=== PATIENT | male | born 1950 | race Caucasian/White ===

== ENCOUNTER 2025-05-03 09:07 | Outpatient (CLI) | payer MEDICARE, SELFPAY ==
--- OUTSIDE RECORDS SUMMARY | 2025-05-03 09:48 | XMS_ITS | Encounter Summary ---
Author Organization [facility] Address [address] [facility] [place] [address] Care Team Providers Care Telephone Directory Deliverer Name Role Phone Unavailable Primary Care Provider Unavailabl e Encounter Details Date Type Department Care Team (Late st Contact Info) Description 12/17/2018 Lab Requisition [facility] DermPath Lab [address] [facility] [place] [address] Reese Gonzales MD [address] [place] [address] Social History Tobacco Use Types Packs/Day Years Used Date Smoking Tobacco: Never Assessed Sex and Gender Information Value Date Recorded Sex Assigned at Not on file 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:52 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 Gender Identity Not on file Sexual Orientation Not on file documented as of this encounter Plan of Treatment Not on file documented as of this encounter Procedures Procedure Name Priority Date/Time Associated Diagnosis Comments DERMATOPATHOLOGY Routine 12/16/2018 12:0 0 AM CDT documented in this encounter Results * DERMATOPATHOLOGY (12/16/2018 12:00 AM CDT) Case Report Dermatopathology Report Case: [id number] Authorizing Provider: Reese Gonzales MD Collected: 12/16/2018 12:00 AM Pathologist: Milan Rivera MD Received: 12/17/2018 12:24 PM Specimens: A) - Skin, right melolabial fold B) - Skin, left paranasal cheek 9 4:24 PM CDT DERMATOPATHOLOGY LABORATORY Final Diagnosis Specimen A. SKIN, right melolabial fold: BASAL CELL CARCINOMA, NODULAR TYPE (C44.712) NOT PRESENT AT SAMPLED MARGIN Specimen B. 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 Check margins. 4:24 PM CDT DERMATOPATHOLOGY LABORATORY Gross Description Specimen A: Received is one formalin filled container labeled with the patient's name and designated right melolabial fold. The specimen consists of a punch excision measuring [id number], bisected. The margin is inked green. Jar 0. Specimen B: Received is one formalin filled container labeled with the patient's name and designated left paranasal cheek. The specimen consists of a punch excision measuring [id number], bisected. The margin is inked green. Jar 0. 4:24 PM CDT DERMATOPATHOLOGY LABORATORY Microscopic Description Specimen A. SKIN, right melolabial fold: Within the dermis there are aggregates of basaloid cells with a high nuclear to cytoplasmic ratio and peripheral palisading. This lesion is not present at the sampled margin of the specimen. Specimen B. SKIN, left paranasal cheek: There are prominent sebaceous gland lobules surrounding a dilated hair follicle. This lesion is not present at the sampled margin of the specimen. 4:24 PM T DERMATOPATHOLOGY LABORATORY Disclaimer An external and internal positive and negative controls are appropriate for the histochemical, immunohistochemical and immunofluorescence stain(s) in this case (if any), except where stated explicitly. The performance characteristics of the stain(s) cited in this report were developed and its performance characteristic determined by the Dermatopathology Laboratory at [facility], directed by Dr. Gunner Rivera. These tests need not be, and therefore are not, approved by the [place] Food and Drug Administration. The tests are used for clinical purposes. Billing Codes Specimen Charges Stain Charges 99248 90942 1 1 4:24 PM CDT DERMATOPATHOLOGY LABORATORY Embedded Images 4:24 PM CDT DERMATOPATHOLOGY LABORATORY Pathology/Cytology TISSUE SPECIMEN FROM SKIN / Unknown 12/16/2018 12/17/2018 12:24 PM CDT Miscellaneous samples (specimen) TISSUE SPECIMEN FROM SKIN / Unknown 12/16/2018 12/17/2018 12:24 PM CDT us Reese Gonzales MD LAB - PATHOLOGY/CYTOLOGY ORD ERABLES Final Result DERMATOPATHOLOGY LABORATORY [facility] - Department of Dermatology [address] [place] [address], [address]th [place] [address], [facility] [phone] documented in this encounter Visit Diagnoses Not on filedocumented in this encounter
--- OUTSIDE RECORDS SUMMARY | 2025-05-03 09:48 | XMS_ITS | Encounter Summary ---
Author Organization [facility] Address [address] 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 Gender Identity Not on file Sexual Orientation Not on file documented as of this encounter Plan of Treatment Not on file documented as of this encounter Procedures Procedure Name Priority Date/Time Associated Diagnosis Comments DERMATOPATHOLOGY Routine 04/09/2023 3:33 AM WOOD SASH AND FRAME CARPENTER documented in this encounter Results * DERMATOPATHOLOGY (04/09/2023 3:33 AM WOOD SASH AND FRAME CARPENTER) Case Report Dermatopathology Report Case: [id number] Authorizing Provider: Reese Gonzales MD Collected: 04/09/2023 03:33 AM Ordering Location: [facility] DermPath Lab Received: 04/10/2023 04:02 PM Pathologist: bAigail Hammonds MD Specimen: Skin, left religion 1:40 PM WOOD SASH AND FRAME CARPENTER DERMATOPATHOLOGY LABORATORY Final Diagnosis Specimen A. 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 The specimen consists of a shave biopsy measuring 7x6x1 mm. Jar 0. 3 1:40 PM [facility] DERMATOPATHOLOGY LABORATORY Microscopic Description Specimen A. SKIN, left religion: The epidermis shows parakeratosis, full thickness disorderly maturation of keratinocytes, mitoses at different levels, and dyskeratotic cells. There is focal parakeratosis. The lower half of the epidermis shows disorderly maturation of keratinocytes with nuclear pleomorphism. 3 1:40 PM [facility] DERMATOPATHOLOGY LABORATORY Disclaimer An external and internal positive and negative controls are appropriate for the histochemical, immunohistochemical and immunofluorescence stain(s) in this case (if any), except where stated explicitly. The performance characteristics of the stain(s) cited in this report were developed and its performance characteristic determined by the Dermatopathology Laboratory at [facility], directed by Dr. Gunner Rivera. These tests need not be, and therefore are not, approved by the [place] Food and Drug Administration. The tests are used for clinical purposes. Billing Codes Specimen Charges Stain Charges 55977 1 3 1:40 PM [facility] DERMATOPATHOLOGY LABORATORY Embedded Images 3 1:40 PM [facility] DERMATOPATHOLOGY LABORATORY Pathology/Cytolo gy TISSUE SPECIMEN FROM SKIN / Unknown 04/09/2023 3:33 AM WOOD SASH AND FRAME CARPENTER 04/10/2023 4:02 PM [facility] us Reese Gonzales MD LAB - PATHOLOGY/CYTOLOGY ORD ERABLES Final Result DERMATOPATHOLOGY LABORATORY [facility] - Department of Dermatology [address], [address] [place] [address], [facility] [phone] documented in this encounter Visit Diagnoses Not on filedocumented in this encounter
--- OUTSIDE RECORDS SUMMARY | 2025-05-03 09:48 | XMS_ITS | Encounter Summary ---
Author Organization [facility] Address [address] [facility] [place] [address] Care Team Providers Care Cable Engineer Name Role Phone Unavailable Primary Care Provider Unavailabl e Encounter Details Date Type Department Care Team (Late st Contact Info) Description 03/25/2024 Lab Requisition 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 - Received: 03/25/2024 04:41 PM DermPath Lab Pathologist: Abigail Hammonds MD Specimens: A) - Skin, left nondenominational B) - Skin, left side of neck 11:47 AM CDT DERMATOPATHOLOGY LABORATORY Final Diagnosis Specimen A. 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 SKIN, left side of neck: BASAL CELL CARCINOMA, INFILTRATIVE PATTERN (C44.41) 11:47 AM T DERMATOPATHOLOGY LABORATORY at 1147 CDT Clinical History R/o SCCIS vs SCC vs BCC 11:47 AM T DERMATOPATHOLOGY LABORATORY Gross Description Specimen A: Received is one formalin filled container labeled with the patient's name and designated left nondenominational. The specimen consists of a shave biopsy measuring 9x8x1 mm. Jar 0. Specimen B: Received is one formalin filled container labeled with the patient's name and designated left side of neck. The specimen consists of a shave biopsy measuring 94t50q2 mm. Jar 0. 11:47 AM CDT DERMATOPATHOLOGY LABORATORY Microscopic Description Specimen A. SKIN, left nondenominational: The epidermis shows parakeratosis, full thickness disorderly maturation of keratinocytes, mitoses at different levels, and dyskeratotic cells. Specimen B. SKIN, left side of neck: Within the dermis there are nodular aggregates of basaloid cells associated with fibromyxoid stroma and epithelial-stromal clefts. At the advancing margin of the neoplasm, there are smaller angulated nests that infiltrate the dermis. 11:47 AM T DERMATOPATHOLOGY LABORATORY Disclaimer An external and internal positive and negative controls are appropriate for the histochemical, immunohistochemical and immunofluorescence stain(s) in this case (if any), except where stated explicitly. The performance characteristics of the stain(s) cited in this report were developed and its performance characteristic determined by the Dermatopathology Laboratory at [facility], directed by Dr. Gunner Rivera. These tests need not be, and therefore are not, approved by the [place] Food and Drug Administration. The tests are used for clinical purposes. Billing Codes Specimen Charges Stain Charges 47989 56988 1 1 11:47 AM CDT DERMATOPATHOLOGY LABORATORY Embedded Images 11:47 AM CDT DERMATOPATHOLOGY LABORATORY Pathology/Cytology TISSUE SPECIMEN FROM SKIN / Unknown 03/24/2024 03/25/2024 4:41 PM CDT Miscellaneous samples (specimen) TISSUE SPECIMEN FROM SKIN / Unknown 03/24/2024 03/25/2024 4:41 PM CDT us Reese Gonzales MD LAB - PATHOLOGY/CYTOLOGY ORD ERABLES Final Result DERMATOPATHOLOGY LABORATORY [facility] - Department of Dermatology [facility] [address] [place] [address], [address] [phone] documented in this encounter Visit Diagnoses Not on filedocumented in this encounter
--- OUTSIDE RECORDS SUMMARY | 2025-05-03 09:49 | XMS_ITS | Clinical Summary ---
Author Organization [facility] Address [address] [place] [address] Care Team Providers Care Program Administrator Name Role Phone Unavailable Primary Care Provider Unavailabl e Source Comments [facility],non-owned Affiliates and Associated Physician Practices is amultiple site organization consisting of ambulatory clinics and hospital sitesin [place], [place], [place] and [place]. This disclosure is being madepursuant to the Care Everywhere program and may not contain all information available regarding this patient. 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 Gender Identity Not on file Sexual Orientation Not on file Plan of Treatment Health Maintenance Due Date Last Done Comments COLOGUARD (AGES 45-75) - COL ON CA SCREENING 1949 COLON MONITORING 1949 COLONOSCOPY - COLON CA SCREENING 1949 CT COLONOGRAPHY - COLON CA SCREENING 1949 Colorectal Cancer Screening 1949 FIT - COLON CA SCREENING 1949 FLEX SIG - COLON CA SCREENING 1949 LIPID TESTING 1949 HEPATITIS C SCREENING 05/11/1967 DTAP/TDAP/TD VACCINES (1 - Tdap) 1968 PNEUMOCOCCAL VACCINE 50+ (1 of 1 - PCV) 1999 ZOSTER VACCINE (1 of 2) 1999 Respiratory Syncytial Virus (RSV) Vaccine Pt: or over 60 yrs (1 - 1-dose 75+ series) 2024 DEPRESSION SCREENING 06/03/2024 MEDICARE AWV CALENDAR YEAR 2024 COVID-19 VACCINE ( - 2024-2 6 season) 2025 INFLUENZA VACCINE (#1) 2025 HEPATITIS B VACCINE Aged Out No longe r eligible based on patient's age to complete this topic HIB VACCINE Aged Out No longer eligi ble based on patient's age to complete this topic HPV VACCINE Aged Out No longer eligi ble based on patient's age to complete this topic MENINGOCOCCAL (Group B) VACC INE SHARED DECISION-MAKING Aged Out No longer eligibl e based on patient's age to complete this topic MENINGOCOCCAL GROUPS A/C/Y/W VACCINE Aged Out No longer eligible b ased on patient's age to complete this topic Insurance AETNA AETNA MEDICARE ADV
--- OUTSIDE RECORDS SUMMARY | 2025-05-03 09:49 | XMS_ITS | Encounter Summary ---
Author Organization [facility] Address [address] [facility] [place] [address] Care Team Providers Care Cut File Clerk Name Role Phone Unavailable Primary Care Provider Unavailabl e Encounter Details Date Type Department Care Team (Late st Contact Info) Description 09/10/2024 Lab Requisition [facility] - DermPath Lab [address] 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 Gender Identity Not on file Sexual Orientation Not on file documented as of this encounter Plan of Treatment Not on file documented as of this encounter Procedures Procedure Name Priority Date/Time Associated Diagnosis Comments DERMATOPATHOLOGY Routine 09/10/2024 9:47 AM CDT documented in this encounter Results * DERMATOPATHOLOGY (09/10/2024 9:47 AM CDT) Case Report Dermatopathology Report Case: [id number] Authorizing Provider: Batsheva Sexton DO Collected: 09/10/2024 09:47 AM Ordering Location: [facility] - Received: 09/11/2024 06:19 AM DermPath Lab Pathologist: Sophie Paez MD Specimens: A) - Skin, right nasal tip B) - Skin, right medial cheek 8:33 AM CDT DERMATOPATHOLOGY LABORATORY Final Diagnosis Specimen A. 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 SKIN, right medial cheek: SEBORRHEIC KERATOSIS, IRRITATED (L82.0) (see microscopic description and comment) 8:33 AM [facility] DERMATOPATHOLOGY LABORATORY at 0833 CDT Clinical History A: BCC B: R/O NMSC 8:33 AM [facility] DERMATOPATHOLOGY LABORATORY Gross Description Specimen A: Received is one formalin filled container labeled with the patient's name and designated right nasal tip. The specimen consists of a shave biopsy measuring 6x6x1 mm. Jar 0. Specimen B: Received is one formalin filled container labeled with the patient's name and designated right medial cheek. The specimen consists of a shave biopsy measuring 5x4x1 mm. Jar 0. 8:33 AM [facility] DERMATOPATHOLOGY LABORATORY Microscopic Description Specimen A. SKIN, right nasal tip: Within the dermis there are nodular aggregates of basaloid cells associated with fibromyxoid stroma and epithelial-stromal clefts. At the advancing margin of the neoplasm, there are smaller angulated nests that infiltrate the dermis. Within the dermis, there is a space lined by one to several layers of typical epithelial cells that resemble the lining of the normal sweat duct. Specimen B. SKIN, right medial cheek: There is acanthosis consisting of fairly uniform squamous cells with eosinophilic cytoplasm and squamous eddies. Additional deeper sections were obtained and reviewed. Ki-67 immunohistochemical stain reveals a mildly elevated proliferative index in the lower epidermis. COMMENT: Given the superficial nature of the biopsy specimen, a deeper dermal process cannot be excluded. 8:33 AM [facility] DERMATOPATHOLOGY LABORATORY Disclaimer An external and internal positive and negative controls are appropriate for the histochemical, immunohistochemical and immunofluorescence stain(s) in this case (if any), except where stated explicitly. The performance characteristics of the stain(s) cited in this report were developed and its performance characteristic determined by the Dermatopathology Laboratory at [facility], directed by Dr. Gunner Rivera. These tests need not be, and therefore are not, approved by the [place] Food and Drug Administration. The tests are used for clinical purposes. Billing Codes Specimen Charges Stain Charges 65234 05093 1 1 15067 1 8:33 AM [facility] DERMATOPATHOLOGY LABORATORY Embedded Images 8:33 AM CDT DERMATOPATHOLOGY LABORATORY Pathology/Cytology TISSUE SPECIMEN FROM SKIN / Unknown 09/10/2024 9:47 AM CDT 09/11/2024 6:19 AM CDT Miscellaneous samples (specimen) TISSUE SPECIMEN FROM SKIN / Unknown 09/10/2024 9:47 AM CDT 09/11/2024 6:19 AM CDT us Batsheva Sexton DO LAB - PATHOLOGY/CYTOLOGY ORDERABLES Final Result DERMATOPATHOLOGY LABORATORY [facility] - Department of Dermatology [facility] Medicine [address] [place] [address], [address] [phone] documented in this encounter Visit Diagnoses Not on filedocumented in this encounter
--- NOTE | 2025-05-05 21:58 | WPDPFTINT ---
PFT Procedure Performed PFT Procedure Performed Spirometry with Pre/Post Bronchodilator Plethysmography (Lung Vol) Diffusing Cap (DLCO) Flow Vol Loop PFT Interpretation DOS: 05/03/2025 REQUESTING: Gerardo Jarrell MD REASON FOR TESTING: cough PULMONARY FUNCTION TESTS Results are reliable and reproducible. Repeatability of spirometry FEV1 maneuver pre and post bronchodilator is Grade A. Romeo: GLI 2012 reference equations were used. Spirometry: The pre-bronchodilator FEV1 is 1.86 L, 68%, mildly decreased. The pre-bronchodilator FVC is 2.92 L, 80%, normal. The FEV1/FVC ratio is 64%, normal. Using slow vital capacity to calculate FEV1%, this is decreased, 56%, consistent with airflow obstruction. After bronchodilator, the FEV1 is 2.06 L, 75% predicted, +11. After bronchodilator, the FVC is 3.48 L, 95%, +19. This indicates a statistically significant response to bronchodilator. The FEV1/FVC ratio is 59%. Lung volumes: The total lung capacity is 7.71 L, 120%. The functional reserve capacity is 5.15 L, 151%, increased. The residual volume is 4.40 L, 184%, increased. The RV/TLC is 57%, increased. Airway resistance is increased. The slow vital capacity is 3.31 L, 91%, higher than the forced vital capacity measured in spirometry, 2.92 L, 80%. Diffusion: DLCO is 22, 93%, normal. The DLCO/VA is 4.40, 111%, normal. Flow volume loop: The flow volume loop shows mild coving of the expiratory limb. IMPRESSION: Spirometry shows a mild obstructive ventilatory impairment with a significant response to bronchodilator, moderate air trapping, and normal diffusion. No prior studies for comparison. Evelyn De La Garza MD
== END 2025-05-03 09:08 | disposition home or self-care (01) ==
PROVIDERS: PCP Internal Medicine; Visit Provider Internal Medicine
DX: R05.9 Cough, unspecified (principal)
CPT/HCPCS: 94060; 94726; 94729

== ENCOUNTER 2025-05-28 11:22 | Outpatient (CLI) | payer MEDICARE, SELFPAY ==
--- NOTE | ~2025-05-28 | XR_ITS ---
EXAMINATION: XR chest 2V 05/28/2025 11:37 INDICATION: Cough PROCEDURE: 2 view chest COMPARISON: No prior studies for comparison. FINDINGS: The lungs are clear. The cardiomediastinal silhouette is within normal limits. There are no pleural effusions. There is no pneumothorax suspected. IMPRESSION: 1: NO ACUTE CARDIOPULMONARY DISEASE. Reviewed, dictated and finalized at location O. TRON MICROSCOPIST
--- OUTSIDE RECORDS SUMMARY | 2025-05-28 11:24 | XMS_ITS | Clinical Summary ---
Author Organization [facility] Address [address] [place] [address] Care Team Providers Care Personal Injury Paralegal Name Role Phone Unavailable Primary Care Provider Unavailabl e Source Comments [facility],non-owned Affiliates and Associated Physician Practices is amultiple site organization consisting of ambulatory clinics and hospital sitesin [place], [place], [place] and [place]. This disclosure is being madepursuant to the Care Everywhere program and may not contain all information available regarding this patient. 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
--- OUTSIDE RECORDS SUMMARY | 2025-05-28 11:24 | XMS_ITS | Encounter Summary ---
Author Organization [facility] Address [address] [facility] [place] [address] Care Team Providers Care Client Support Professional Name Role Phone Unavailable Primary Care Provider Unavailabl e Encounter Details Date Type Department Care Team (Late st Contact Info) Description 04/10/2023 Lab Requisition 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 DermPath Lab Received: 04/10/2023 04:02 PM Pathologist: Abigail Hammonds MD Specimen: Skin, left judaism 1:40 PM SOLDERING MACHINE OPERATOR HELPER DERMATOPATHOLOGY LABORATORY Final Diagnosis Specimen A. 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 The specimen consists of a shave biopsy measuring 7x6x1 mm. Jar 0. 3 1:40 PM [facility] DERMATOPATHOLOGY LABORATORY Microscopic Description Specimen A. SKIN, left judaism: The epidermis shows parakeratosis, full thickness disorderly maturation of keratinocytes, mitoses at different levels, and dyskeratotic cells. There is focal parakeratosis. The lower half of the epidermis shows disorderly maturation of keratinocytes with nuclear pleomorphism. 3 1:40 PM [facility] DERMATOPATHOLOGY LABORATORY Disclaimer An external and internal positive and negative controls are appropriate for the histochemical, immunohistochemical and immunofluorescence stain(s) in this case (if any), except where stated explicitly. The performance characteristics of the stain(s) cited in this report were developed and its performance characteristic determined by the Dermatopathology Laboratory at [facility], directed by Dr. Gunner Rivera. These tests need not be, and therefore are not, approved by the [place] Food and Drug Administration. The tests are used for clinical purposes. Billing Codes Specimen Charges Stain Charges 17922 1 3 1:40 PM [facility] DERMATOPATHOLOGY LABORATORY Embedded Images 3 1:40 PM [facility] DERMATOPATHOLOGY LABORATORY Pathology/Cytolo gy TISSUE SPECIMEN FROM SKIN / Unknown 04/09/2023 3:33 AM SOLDERING MACHINE OPERATOR HELPER 04/10/2023 4:02 PM [facility] us Reese Gonzales MD LAB - PATHOLOGY/CYTOLOGY ORD ERABLES Final Result DERMATOPATHOLOGY LABORATORY [facility] - Department of Dermatology [address], [address] [place] [address], [facility] [phone] documented in this encounter Visit Diagnoses Not on filedocumented in this encounter
--- OUTSIDE RECORDS SUMMARY | 2025-05-28 11:24 | XMS_ITS | Encounter Summary ---
Author Organization [facility] Address [address] [place] [address] Care Team Providers Care Expense Clerk Name Role Phone Unavailable Primary Care Provider Unavailabl e Encounter Details Date Type Department Care Team (Late st Contact Info) Description 03/25/2024 Lab Requisition [facility] - DermPath Lab [address] [place] [phone] Reese Gonzales MD [address] [place], [place] [id number] Social History Tobacco Use Types Packs/Day Years Used Date Smoking Tobacco: Never Assessed Sex and Gender Information Value Date Recorded Sex Assigned at Not on file 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 Gender Identity Not on file Sexual Orientation Not on file documented as of this encounter Plan of Treatment Not on file documented as of this encounter Procedures Procedure Name Priority Date/Time Associated Diagnosis Comments DERMATOPATHOLOGY Routine 03/24/2024 12:0 0 AM CDT documented in this encounter Results * DERMATOPATHOLOGY (03/24/2024 12:00 AM CDT) Case Report Dermatopathology Report Case: [id number] Authorizing Provider: Reese Gonzales MD Collected: 03/24/2024 12:00 AM Ordering Location: [facility] - Received: 03/25/2024 04:41 PM DermPath Lab Pathologist: Abigail Hammonds MD Specimens: A) - Skin, left orthodox B) - Skin, left side of neck 11:47 AM CDT DERMATOPATHOLOGY LABORATORY Final Diagnosis Specimen A. SKIN, left orthodox: SQUAMOUS CELL CARCINOMA IN SITU (DALTON'S DISEASE) (D04.39) Specimen B. SKIN, left side of neck: BASAL CELL CARCINOMA, INFILTRATIVE PATTERN (C44.41) 11:47 AM T DERMATOPATHOLOGY LABORATORY at 1147 CDT Clinical History R/o SCCIS vs SCC vs BCC 11:47 AM T DERMATOPATHOLOGY LABORATORY Gross Description Specimen A: Received is one formalin filled container labeled with the patient's name and designated left orthodox. The specimen consists of a shave biopsy measuring 9x8x1 mm. Jar 0. Specimen B: Received is one formalin filled container labeled with the patient's name and designated left side of neck. The specimen consists of a shave biopsy measuring 35n44a1 mm. Jar 0. 11:47 AM CDT DERMATOPATHOLOGY LABORATORY Microscopic Description Specimen A. SKIN, left orthodox: The epidermis shows parakeratosis, full thickness disorderly [...] characteristic determined by the Dermatopathology Laboratory at [facility], directed by Dr. Gunner Rivera. These tests need not be, and therefore are not, approved by the [place] Food and Drug Administration. The tests are used for clinical purposes. Billing Codes Specimen Charges Stain Charges 54613 12724 1 1 11:47 AM CDT DERMATOPATHOLOGY LABORATORY Embedded Images 11:47 AM CDT DERMATOPATHOLOGY LABORATORY Pathology/Cytology TISSUE SPECIMEN FROM SKIN / Unknown 03/24/2024 03/25/2024 4:41 PM CDT Miscellaneous samples (specimen) TISSUE SPECIMEN FROM SKIN / Unknown 03/24/2024 03/25/2024 4:41 PM CDT us Reese Gonzales MD LAB - PATHOLOGY/CYTOLOGY ORD ERABLES Final Result DERMATOPATHOLOGY LABORATORY [facility] - Department of Dermatology [facility] Special[facility] Medicine [address] [place] [address], [address] [phone] documented in this encounter Visit Diagnoses Not on filedocumented in this encounter
--- OUTSIDE RECORDS SUMMARY | 2025-05-28 11:24 | XMS_ITS | Encounter Summary ---
Author Organization [facility] Address [address] [place] [address] Care Team Providers Care Division Toll Wire Chief Name Role Phone Unavailable Primary Care Provider Unavailabl e Encounter Details Date Type Department Care Team (Late st Contact Info) Description 09/10/2024 Lab Requisition [facility] - DermPath Lab [address] [facility], [facility] [place] [address] Batsheva Sexton DO [address] [facility] [address] [place] [address] Social History Tobacco Use Types Packs/Day Years Used Date Smoking Tobacco: Never Assessed Sex and Gender Information Value Date Recorded Sex Assigned at Not on file 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 Gender Identity Not on file Sexual Orientation Not on file documented as of this encounter Plan of Treatment Not on file documented as of this encounter Procedures Procedure Name Priority Date/Time Associated Diagnosis Comments DERMATOPATHOLOGY Routine 09/10/2024 9:47 AM CDT documented in this encounter Results * DERMATOPATHOLOGY (09/10/2024 9:47 AM CDT) Case Report Dermatopathology Report Case: [id number] Authorizing Provider: Batsheva Sexton DO Collected: 09/10/2024 09:47 AM Ordering Location: [facility] - Received: 09/11/2024 06:19 [...] (see microscopic description and comment) 8:33 AM [facility] DERMATOPATHOLOGY LABORATORY at 0833 CDT Clinical History A: BCC B: R/O NMSC 8:33 AM [facility] DERMATOPATHOLOGY LABORATORY Gross Description Specimen A: Received [...] measuring 5x4x1 mm. Jar 0. 8:33 AM [facility] DERMATOPATHOLOGY LABORATORY Microscopic Description Specimen A. SKIN, [...] dermal process cannot be excluded. 8:33 AM [facility] DERMATOPATHOLOGY LABORATORY Disclaimer An external and internal positive and negative controls are appropriate for the histochemical, immunohistochemical and immunofluorescence stain(s) in this case (if any), except where stated explicitly. The performance characteristics of the stain(s) cited in this report were developed and its performance characteristic determined by the Dermatopathology Laboratory at [facility], directed by Dr. Gunner Rivrea. These tests need not be, and therefore are not, approved by the [place] Food and Drug Administration. The tests are used for clinical purposes. Billing Codes Specimen Charges Stain Charges 97028 45510 1 1 74454 1 8:33 AM [facility] DERMATOPATHOLOGY LABORATORY Embedded Images 8:33 AM CDT DERMATOPATHOLOGY LABORATORY Pathology/Cytology TISSUE SPECIMEN FROM SKIN / Unknown 09/10/2024 9:47 AM CDT 09/11/2024 6:19 AM CDT Miscellaneous samples (specimen) TISSUE SPECIMEN FROM SKIN / Unknown 09/10/2024 9:47 AM CDT 09/11/2024 6:19 AM CDT us Batsheva Sexton DO LAB - PATHOLOGY/CYTOLOGY ORDERABLES Final Result DERMATOPATHOLOGY LABORATORY [facility] - Department of Dermatology [facility] Medicine [address] [place] [address], [address] [phone] documented in this encounter Visit Diagnoses Not on filedocumented in this encounter
--- OUTSIDE RECORDS SUMMARY | 2025-05-28 11:24 | XMS_ITS | Encounter Summary ---
Author Organization [facility] Address [address] [facility] [place] [address] Care Team Providers Care Lamp Shades Supervisor Name Role Phone Unavailable Primary Care Provider Unavailabl e Encounter Details Date Type Department Care Team (Late st Contact Info) Description 12/17/2018 Lab Requisition [facility] DermPath Lab [address] [facility] [place] [address] Reese Gonzales MD [address] [place] [address] Social History Tobacco Use Types Packs/Day Years Used Date Smoking Tobacco: Never Assessed Sex and Gender Information Value Date Recorded Sex Assigned at Not on file 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 The margin is inked green. Jar 0. Specimen B: Received is one formalin filled container labeled with the patient's name and designated left paranasal cheek. The specimen consists of a punch excision measuring [id number], bisected. The margin is inked green. Jar [...] determined by the Dermatopathology Laboratory at [facility], directed by Dr. Gunner Rivera. These tests need not be, and therefore are not, approved by the [place] Food and Drug Administration. The tests are used for clinical purposes. Billing Codes Specimen Charges Stain Charges 84165 20917 1 1 4:24 PM CDT DERMATOPATHOLOGY LABORATORY Embedded Images 4:24 PM CDT DERMATOPATHOLOGY LABORATORY Pathology/Cytology TISSUE SPECIMEN FROM SKIN / Unknown 12/16/2018 12/17/2018 12:24 PM CDT Miscellaneous samples (specimen) TISSUE SPECIMEN FROM SKIN / Unknown 12/16/2018 12/17/2018 12:24 PM CDT us Reese Gonzales MD LAB - PATHOLOGY/CYTOLOGY ORD ERABLES Final Result DERMATOPATHOLOGY LABORATORY [facility] - Department of Dermatology [address] [place] [address], [address] [place] [address], [facility] [phone] documented in this encounter Visit Diagnoses Not on filedocumented in this encounter
== END 2025-05-28 11:23 | disposition home or self-care (01) ==
PROVIDERS: PCP Internal Medicine; Visit Provider Internal Medicine
DX: R05.9 Cough, unspecified (principal)
CPT/HCPCS: 71046